=== PATIENT | female | born 2000 | race Hispanic/Latino ===

== ENCOUNTER 2019-10-03 17:02 | Inpatient (IN) | payer BC, MEDICAID ==
[~2019-10-03] VITALS: Ht 154.9 cm; Wt 86.6 kg
[2019-10-03] MEDS ORDERED: LACTATED RINGERS 1000ML 1,000 ML IV PRN (17:18)
[2019-10-03] MEDS ORDERED: MAGNESIUM SULFATE 1,000 ML IV PRN ×2 (18:04→21:23)
[2019-10-03] MEDS ORDERED: MAGNESIUM 4GM PREMIX 100ML 100 ML IV ONE (18:04)
[2019-10-03] MEDS ORDERED: LACTATED RINGERS 1000ML 1,000 ML IV SCH ×3 (18:04→21:23)
[2019-10-03] MEDS ORDERED: MAGNESIUM SULFATE 1,000 ML IV ONE (18:05)
[2019-10-03] MEDS ORDERED: LABETALOL 20 MG/4 ML DISP.SYRIN IV ONE (18:05)
[2019-10-03] MEDS ORDERED: LABETALOL 20 MG/4 ML DISP.SYRIN IV SCH (18:15)
[2019-10-03] MEDS ORDERED: MAGNESIUM 4GM PREMIX 100ML 100 ML IV PRN ×2 (18:15→21:30)
[2019-10-03] MEDS ORDERED: CALCIUM GLUCONATE 1 GM/10 ML VIAL IV PRN ×2 (18:15→21:30)
[2019-10-03 18:39] VITALS: BP 146/89
[2019-10-03] MEDS ORDERED: CEFAZOLIN SODIUM 1 GM VIAL ONE (19:24)
[2019-10-03] MEDS ORDERED: CALDOLOR 800MG+NS 250ML 250 ML IV ONE (19:24)
[2019-10-03] MEDS ORDERED: CALDOLOR 800MG+NS 250ML 250 ML IV PRN (19:30)
[2019-10-03] MEDS ORDERED: CEFAZOLIN SODIUM 1 GM VIAL IVP PRN (19:30)
[2019-10-03] MEDS ORDERED: DURAMORPH PF1 MG/ML 10ML AMP IV ONE (19:45)
[2019-10-03] MEDS ORDERED: CEFAZOLIN SODIUM 1 GM VIAL IVP ONE (20:30)
[2019-10-03] MEDS ORDERED: ONDANSETRON HCL 4 MG/2 ML VIAL ONE (20:49)
[2019-10-03] MEDS ORDERED: MIDAZOLAM HCL 1 MG/ML 2ML VIAL ONE (20:51)
[2019-10-03] MEDS ORDERED: OXYTOCIN 10 USP UNITS/ML IV PRN (21:30)
[2019-10-03] MEDS ORDERED: PROMETHAZINE HCL 25 MG/ML 1ML AMPULE IM PRN (21:30)
[2019-10-03] MEDS ORDERED: MEPERIDINE-PF 75 MG/ML SYG IM PRN (21:30)
[2019-10-03] MEDS: OXYTOCIN-LR 20 UNITS/1000 ML 1,000 ML IV SCH (22:38)
[2019-10-04] MEDS: CALDOLOR 800MG+NS 250ML 250 ML IV SCH ×2 (06:35→16:00)
[2019-10-04] MEDS: OXYTOCIN-LR 20 UNITS/1000 ML 1,000 ML IV SCH (17:30)
[2019-10-04 17:56] VITALS: BP 145/94; PULSE 85; RESP 20; TEMP 99.7
[2019-10-04 19:40] VITALS: BP 140/88; PULSE 83; RESP 20; TEMP 98.7
[2019-10-04] MEDS ORDERED: ACETAMINOPHEN EXTRA STRENGTH 500 MG TABLET PO PRN (20:45)
[2019-10-04] MEDS ORDERED: BISACODYL 10 MG SUPP.RECT RC PRN (20:45)
[2019-10-04] MEDS ORDERED: LANOLIN 30GM OINTMENT TP PRN (20:45)
[2019-10-04] MEDS ORDERED: HYDROCODONE/ACETAMINOPHEN 5/325 MG TAB PO PRN (20:45)
[2019-10-04] MEDS ORDERED: ACETAMINOPHEN-CODEINE 300/30MG TAB PO PRN (20:45)
[2019-10-04] MEDS: IBUPROFEN 800 MG TAB PO SCH (20:55)
[2019-10-04] MEDS: DIPH,PERTUSS(ACELL),TET VAC/PF 0.5 ML VIAL IM SCH ×2 (20:56→21:25)
[2019-10-04] MEDS: DOCUSATE SODIUM 100 MG CAP PO SCH (21:27)
[2019-10-04] MEDS: SIMETHICONE 80 MG TAB.CHEW PO PRN (21:27)
[2019-10-04 23:43] VITALS: BP 145/72; PULSE 85; RESP 20; TEMP 98.8
--- NOTE | 2019-10-05 01:00 | NUR ---
PT. AMBULATED WITH ASSIST IN HALLWAY FOR 15 MINUTES; WELL TOLERATED.
[2019-10-05 04:04] VITALS: BP 129/75; PULSE 85; RESP 18; TEMP 99.6
[2019-10-05] MEDS: IBUPROFEN 800 MG TAB PO SCH ×2 (05:13→13:15)
[2019-10-05 07:39] VITALS: BP 138/83; PULSE 88; RESP 18; TEMP 98.1
[2019-10-05] MEDS: SIMETHICONE 80 MG TAB.CHEW PO PRN (09:05)
[2019-10-05] MEDS: DOCUSATE SODIUM 100 MG CAP PO SCH (09:05)
--- NOTE | 2019-10-05 10:35 | NUR ---
SPOKE WITH DR. ROMO VIA TELEPHONE. UPDATED MD ON PATIENT'S STATUS AND BPS. NEW ORDERS RECEIVED, PATIENT OKAY TO GO HOME. RX TO BE CALLED IN TO PHARMACY BY MD.
[2019-10-05 11:10] VITALS: BP 133/87; PULSE 93; RESP 17; TEMP 98.2
--- NOTE | 2019-10-05 11:10 | NUR ---
DISCHARGE INSTRUCTIONS READ AND EXPLAINED TO PATIENT. REVIEWED INCISION CARE, COVID 19 PRECAUTIONS, HANDWASHING, HEMORRHAGE. ADVISED PATIENT TO CONTINUE AMBULATING AND USING INCENTIVE SPIROMETER. RX TO BE CALLED IN TO PHARMACY BY MD. PATIENT VOICED UNDERSTANDING ON ALL INSTRUCTIONS.
--- NOTE | 2019-10-05 14:20 | NUR ---
PATIENT LEFT UNIT VIA WHEELCHAIR WITH BABY IN ARMS. PERSONAL VEHICLE USED FOR TRANSPORTATION. BABY SECURE IN CARSEAT. NO COMPLAINTS OR CONCERNS ADDRESSED FROM PATIENT ON DISCHARGE.
== END 2019-10-05 14:20 | disposition home or self-care (01) | DRG 788 ==
LOC: LDH 17:02 → WSH 10-04 17:50 → PREOBSVTOIN 10-05 17:01
PROVIDERS: ADMIT Obstetrics & Gynecology; ATTEND Obstetrics & Gynecology
PROC: 3E0234Z Introduction of Serum, Toxoid and Vaccine into Muscle, Percutaneous Approach (ICD-10-PCS; 2019-10-03)
PROC: 10D00Z1 Extraction of Products of Conception, Low, Open Approach (ICD-10-PCS; principal; 2019-10-03 20:00)
DX: O13.4 Gestational [pregnancy-induced] hypertension without significant proteinuria, complicating childbirth (principal); Z3A.39 39 weeks gestation of pregnancy; Z37.0 Single live birth; Z23 Encounter for immunization; O34.83 Maternal care for other abnormalities of pelvic organs, third trimester; N83.292 Other ovarian cyst, left side; N83.8 Other noninflammatory disorders of ovary, fallopian tube and broad ligament; O69.81X0 Labor and delivery complicated by cord around neck, without compression, not applicable or unspecified

== ENCOUNTER 2021-08-18 20:42 | Observation (INO) | payer BC, MEDICAID ==
[~2021-08-18] VITALS: Ht 154.9 cm; Wt 74.8 kg
[~2021-08-18 20:42] MED LIST: PREN1TAB80 PO
[2021-08-18 20:45] VITALS: BP 113/73
[2021-08-18 21:21] LABS: APPEARANCE,URINE Clear (CLEAR); BILIRUBIN,URINE Negative (NEGATIVE); COLOR,URINE Yellow (YELLOW); GLUCOSE, URINE (UA) Negative (NEGATIVE); KETONES,URINE Negative (NEGATIVE); LEUKOCYTE ESTERASE ,URINE Moderate (NEGATIVE); NITRATE,URINE Negative (NEGATIVE); OCCULT BLOOD,URINE Negative (NEGATIVE); PROTEIN,URINE Negative (NEGATIVE)
[2021-08-18 21:29] LABS: AMPHET/METH SCREEN,URINE NEGATIVE (NEGATIVE); BARBITURATE SCREEN, URINE NEGATIVE (NEGATIVE); BENZODIAZEPINES SCREEN,URINE NEGATIVE (NEGATIVE); CANNABINOID SCREEN,URINE NEGATIVE (NEGATIVE); COCAINE SCREEN,URINE NEGATIVE (NEGATIVE); OPIATE SCREEN,URINE NEGATIVE (NEGATIVE); PHENCYCLIDINE SCREEN,URINE NEGATIVE (NEGATIVE)
[2021-08-18 21:38] LABS: BACTERIA,URINE Few /HPF (None Seen); MUCUS,URINE Few LPF (None Seen); RBC,URINE 0-1 /HPF (0-1); SQUAMOUS EPITHELIAL CELL,UR Few /HPF (0-2)
== END 2021-08-18 22:40 | disposition home or self-care (01) ==
LOC: EDH 20:42 → LDH 20:43
PROVIDERS: ADMIT Obstetrics & Gynecology; ATTEND Obstetrics & Gynecology
DX: O60.02 Preterm labor without delivery, second trimester (principal); Z3A.28 28 weeks gestation of pregnancy; W19.XXXA Unspecified fall, initial encounter; Z98.891 History of uterine scar from previous surgery; Z79.899 Other long term (current) drug therapy; Y92.89 Other specified places as the place of occurrence of the external cause; Y93.89 Activity, other specified; Y99.8 Other external cause status
CPT/HCPCS: 59025; 80305; 81001; 87088; G0378 ×2; G0379

== ENCOUNTER 2021-10-30 13:15 | Inpatient (IN) | payer BC, MEDICAID ==
[~2021-10-30] VITALS: Ht 154.9 cm; Wt 78.5 kg
[2021-11-02] MEDS ORDERED: LACTATED RINGERS 1000ML 1,000 ML IV SCH (06:00)
[2021-11-02] MEDS ORDERED: CEFAZOLIN SODIUM 1 GM VIAL IVP PRN (06:00)
[2021-11-02] MEDS ORDERED: CALDOLOR 800MG+NS 250ML 250 ML IV PRN (06:00)
[2021-11-02] MEDS ORDERED: PREN-196 PO (06:03)
[2021-11-02 06:38] LABS: HEMATOCRIT 38.6 % (36-48); MEAN CORPUSCULAR HGB CONC 33.7 g/dL (32.0-36.0); MEAN CORPUSCULAR VOLUME 95.1 fL (79-99); RED BLOOD CELL COUNT(AUTO) 4.06 MIL/uL (4.00-5.50); RED CELL DISTRIBUTION WIDTH 12.4 % (11.0-15.5); WHITE BLOOD COUNT (AUTO) 8.9 K/uL (4.8-10.8)
[2021-11-02] MEDS ORDERED: OXYTOCIN-LR 20 UNITS/1000 ML 1,000 ML IV ONE (07:11)
[2021-11-02] MEDS ORDERED: MORPHINE PF 100MG/10ML AMP IV ONE (07:41)
[2021-11-02] MEDS ORDERED: EPHEDRINE SULFATE 50 MG/ML AMPULE ONE (07:54)
[2021-11-02] MEDS ORDERED: ONDANSETRON 4MG INJ ONE ×3 (08:00→17:59)
[2021-11-02] MEDS ORDERED: MEPERIDINE-PF 75 MG/ML SYG IM PRN (09:00)
[2021-11-02] MEDS ORDERED: 0.9%NACL 10ML VIAL IVP PRN (09:00)
[2021-11-02] MEDS ORDERED: OXYTOCIN-LR 20 UNITS/1000 ML 1,000 ML IV PRN (09:00)
[2021-11-02] MEDS ORDERED: PROMETHAZINE HCL 25 MG/ML 1ML AMPULE IM PRN (09:00)
[2021-11-02] MEDS ORDERED: LORATADINE 10 MG TABLET PO SCH (10:00)
[2021-11-02 13:00] VITALS: BP 109/47
[2021-11-02 16:37] VITALS: BP 106/61
[2021-11-02] MEDS: CALDOLOR 800MG+NS 250ML 250 ML IV SCH (17:53)
[2021-11-02] MEDS: DEXTROSE 5 %-0.45 % NACL 1,000 ML IV PRN (17:56)
[2021-11-02 19:15] VITALS: BP 109/63
[2021-11-02 22:51] VITALS: BP 109/67
[2021-11-03] MEDS: CALDOLOR 800MG+NS 250ML 250 ML IV SCH (00:39)
[2021-11-03 02:35] VITALS: BP 101/53
[2021-11-03] MEDS: DEXTROSE 5 %-0.45 % NACL 1,000 ML IV PRN (06:13)
[2021-11-03 07:13] LABS: HEMATOCRIT 35.2 % (36-48); MEAN CORPUSCULAR HEMOGLOBIN 32.1 pg (27.0-33.0); MEAN CORPUSCULAR HGB CONC 33.2 g/dL (32.0-36.0); MEAN CORPUSCULAR VOLUME 96.7 fL (79-99); RED BLOOD CELL COUNT(AUTO) 3.64 MIL/uL (4.00-5.50); RED CELL DISTRIBUTION WIDTH 12.6 % (11.0-15.5); WHITE BLOOD COUNT (AUTO) 9.1 K/uL (4.8-10.8)
[2021-11-03 07:24] VITALS: BP 94/59
[2021-11-03] MEDS ORDERED: ACETAMINOPHEN 500 MG TABLET PO PRN (08:30)
[2021-11-03] MEDS ORDERED: LANOLIN 30GM OINTMENT TP PRN (08:30)
[2021-11-03] MEDS ORDERED: DIPH,PERTUSS(ACELL),TET VAC/PF 0.5 ML VIAL IM SCH (08:30)
[2021-11-03] MEDS ORDERED: HYDROCODONE/ACETAMINOPHEN 5/325 MG TAB PO PRN (08:30)
[2021-11-03] MEDS ORDERED: BISACODYL 10 MG SUPP.RECT RC PRN (08:30)
[2021-11-03] MEDS: SIMETHICONE 80 MG TAB.CHEW PO PRN ×4 (09:26→20:17)
[2021-11-03] MEDS: DOCUSATE SODIUM 100 MG CAP PO SCH ×2 (09:26→20:17)
[2021-11-03] MEDS: IBUPROFEN 800 MG TAB PO SCH ×2 (09:27→17:21)
[2021-11-03 11:29] VITALS: BP 96/62
[2021-11-03] MEDS: ACETAMINOPHEN WITH CODEINE 1 TAB TAB PO PRN (15:42)
[2021-11-03 17:11] VITALS: BP 96/59
[2021-11-03 19:17] VITALS: BP 96/65
[2021-11-03 22:30] VITALS: BP 95/63
[2021-11-04] MEDS: IBUPROFEN 800 MG TAB PO SCH ×2 (00:45→09:19)
[2021-11-04 02:48] VITALS: BP 108/65
[2021-11-04] MEDS: ACETAMINOPHEN WITH CODEINE 1 TAB TAB PO PRN (04:12)
[2021-11-04 07:26] VITALS: BP 96/68
[2021-11-04] MEDS: DOCUSATE SODIUM 100 MG CAP PO SCH (09:19)
[2021-11-04] MEDS: SIMETHICONE 80 MG TAB.CHEW PO PRN (09:19)
[2021-11-04 11:31] VITALS: BP 121/76
== END 2021-11-04 12:20 | disposition home or self-care (01) | DRG 788 ==
LOC: LDH 11-02 05:28 → WSH 11-02 13:00
PROVIDERS: ADMIT Obstetrics & Gynecology; ATTEND Obstetrics & Gynecology
PROC: 10D00Z1 Extraction of Products of Conception, Low, Open Approach (ICD-10-PCS; principal; 2021-11-02 07:30)
DX: O34.211 Maternal care for low transverse scar from previous cesarean delivery (principal); O99.824 Streptococcus B carrier state complicating childbirth; Z20.822 Contact with and (suspected) exposure to COVID-19; O69.81X0 Labor and delivery complicated by cord around neck, without compression, not applicable or unspecified; O16.4 Unspecified maternal hypertension, complicating childbirth; Z37.0 Single live birth; Z3A.39 39 weeks gestation of pregnancy
CPT/HCPCS: 36415; 59510; 85027; 86592; 86850; 86900; 86901; 87340; 87426; 90715; A4344; G0378; J0690; J1741; J2274; J2405; J2590; J3490; J7120